=== PATIENT | female | born 1995 | race Caucasian/White ===

== ENCOUNTER 2017-08-14 05:35 | Inpatient (IN) | payer OTHER ==
[2017-08-14] VITALS (8 sets, daily range): BP systolic 127–147; BP diastolic 65–79; PULSE 66–99; RESP 16–22; TEMP 97.6–98.6; O2SAT 96–100
[~2017-08-14] VITALS: Ht 180.3 cm; Wt 118.0 kg
[2017-08-14 05:55] LABS: AUTOMATED NEUTROPHIL # 7.6 TH/MM3 (1.8-7.7); BASOPHIL % 0.2 % (0.0-2.0); EOSINOPHIL % 0.2 % (0.0-4.0); HEMATOCRIT 38.5 % (35.0-46.0); LYMPH % 25.2 % (9.0-44.0); LYMPHOCYTE # 2.8 TH/MM3 (1.0-4.8); MEAN CELL VOLUME 82.7 FL (80.0-100.0); MEAN CORPUSCULAR HEMOGLOBIN 27.9 PG (27.0-34.0); MEAN CORPUSCULAR HGB CONC 33.7 % (32.0-36.0); MEAN PLATELET VOLUME 7.8 FL (7.0-11.0); MONO % 6.2 % (0.0-8.0); MONOCYTE # 0.7 TH/MM3 (0-0.9); NEUT % 68.2 % (16.0-70.0); PLATELET COUNT 293 TH/MM3 (150-450); RED BLOOD COUNT 4.66 MIL/MM3 (4.00-5.30); RED CELL DISTRIBUTION WIDTH 14.3 % (11.6-17.2); WHITE BLOOD COUNT 11.1 TH/MM3 (4.0-11.0)
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
[2017-08-14] MEDS ORDERED: IOHEXOL 350 MG/ML 10 ML VIAL (for RAD DIAG) IVCONTRAST ONE (06:06)
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
[2017-08-14] MEDS ORDERED: SODIUM CHLOR 0.9% 1000 ML INJ 1,000 ML IV SCH (06:12)
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
[2017-08-14] MEDS ORDERED: SODIUM CHLORIDE 0.9% FLUSH 10 ML FLUSH IV FLUSH PRN (06:15)
[2017-08-14] MEDS ORDERED: ONDANSETRON HCL 4 MG/2 ML VIAL IV PUSH PRN (06:15)
[2017-08-14] MEDS ORDERED: Post-op Orders (for Pharmacy) XX ONE (06:15)
[2017-08-14] MEDS ORDERED: MORPHINE SULFATE 4 MG/ML INJ IV PUSH ONE (06:15)
[2017-08-14] MEDS ORDERED: oxyCODONE/ACETAMINOPHEN 5 MG/325 MG TAB PO PRN (06:15)
[2017-08-14] MEDS ORDERED: NALOXONE HCL 0.4 MG/ML AMP IV PUSH PRN (06:15)
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
[2017-08-14] MEDS ORDERED: LACTULOSE SYRUP 20 GM/30 ML CUP PO PRN (07:15)
[2017-08-14] MEDS: METHOCARBAMOL 500 MG TAB PO SCH ×3 (07:51→22:26)
[2017-08-14] MEDS: POLYETHYLENE GLYCOL 17 GM PKG PO SCH (09:00)
[2017-08-14] MEDS ORDERED: LIDOCAINE HCL 5% PATCH T-DERMAL SCH (09:00)
[2017-08-14] MEDS: SODIUM CHLORIDE 0.9% FLUSH 10 ML FLUSH IV FLUSH SCH ×2 (09:00→21:00)
[2017-08-14] MEDS: MORPHINE SULFATE 2 MG/ML SYRINGE IV PUSH PRN ×3 (09:32→16:28)
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
[2017-08-14] MEDS: FAMOTIDINE 20 MG TAB PO SCH ×2 (12:58→19:39)
[2017-08-14] MEDS: LIDOCAINE HCL 5% PATCH T-DERMAL SCH (12:58)
[2017-08-14] MEDS: DOCUSATE SODIUM 50 MG/SENNA 8.6 MG TAB PO SCH ×2 (12:58→19:39)
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
[2017-08-14] MEDS: oxyCODONE/ACETAMINOPHEN 10 MG/325 MG TAB PO PRN (19:39)
[2017-08-14] MEDS ORDERED: REMOVE OLD LIDOCAINE PATCH T-DERMAL SCH (21:00)
[2017-08-15 00:05] VITALS: BP 105/55; PULSE 86; RESP 18; TEMP 98.4; O2SAT 97
[2017-08-15] MEDS: KETOROLAC TROMETHAMINE 60 MG/2 ML (IM) VIAL IM SCH ×3 (01:11→14:52)
[2017-08-15] MEDS: oxyCODONE/ACETAMINOPHEN 10 MG/325 MG TAB PO PRN ×3 (06:11→19:17)
[2017-08-15] MEDS: METHOCARBAMOL 500 MG TAB PO SCH ×2 (06:11→14:50)
[2017-08-15 06:38] LABS: AUTOMATED NEUTROPHIL # 3.4 TH/MM3 (1.8-7.7); EOSINOPHIL % 0.5 % (0.0-4.0); HEMATOCRIT 35.7 % (35.0-46.0); LYMPH % 31.6 % (9.0-44.0); LYMPHOCYTE # 1.8 TH/MM3 (1.0-4.8); MEAN CELL VOLUME 83.1 FL (80.0-100.0); MEAN CORPUSCULAR HEMOGLOBIN 27.9 PG (27.0-34.0); MEAN CORPUSCULAR HGB CONC 33.6 % (32.0-36.0); MEAN PLATELET VOLUME 8.1 FL (7.0-11.0); MONO % 8.8 % (0.0-8.0); MONOCYTE # 0.5 TH/MM3 (0-0.9); NEUT % 59.1 % (16.0-70.0); PLATELET COUNT 243 TH/MM3 (150-450); RED BLOOD COUNT 4.29 MIL/MM3 (4.00-5.30); RED CELL DISTRIBUTION WIDTH 14.1 % (11.6-17.2); WHITE BLOOD COUNT 5.8 TH/MM3 (4.0-11.0)
[2017-08-15 07:00] LABS: BICARBONATE 27.5 MEQ/L (21.0-32.0); CALCIUM 8.7 MG/DL (8.5-10.1); CREATININE 0.91 MG/DL (0.50-1.00)
[2017-08-15 08:00] VITALS: BP 129/63; PULSE 81; RESP 16; TEMP 97.9; O2SAT 92
[2017-08-15] MEDS: DOCUSATE SODIUM 50 MG/SENNA 8.6 MG TAB PO SCH (08:38)
[2017-08-15] MEDS: LIDOCAINE HCL 5% PATCH T-DERMAL SCH (08:38)
[2017-08-15] MEDS: SODIUM CHLORIDE 0.9% FLUSH 10 ML FLUSH IV FLUSH SCH (08:39)
[2017-08-15] MEDS: FAMOTIDINE 20 MG TAB PO SCH (08:39)
[2017-08-15] MEDS: POLYETHYLENE GLYCOL 17 GM PKG PO SCH (08:39)
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
[2017-08-15 12:00] VITALS: BP 121/58; PULSE 78; RESP 16; TEMP 97; O2SAT 98
[2017-08-15] MEDS ORDERED: ENOXAPARIN SODIUM 40 MG/0.4 ML SYRINGE SQ SCH (12:00)
[2017-08-15] MEDS ORDERED: PERI PO (12:29)
[2017-08-15] MEDS ORDERED: METH500T3 PO (12:29)
[2017-08-15] MEDS ORDERED: OXYC1TAB63 PO (12:29)
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
[2017-08-15] MEDS ORDERED: WALKER WHEELS/F1 MIS (14:45)
== END 2017-08-15 19:39 | disposition home or self-care (01) | DRG 552 ==
LOC: NEPI 05:35 → NEDA 06:16 → EDBD 06:16 → N06B 06:36 → NEDA 06:36 → N06B 08:18
PROVIDERS: ADMIT Surgery; ATTEND Surgery
DX: S32.010A Wedge compression fracture of first lumbar vertebra, initial encounter for closed fracture (principal); V49.88XA Car occupant (driver) (passenger) injured in other specified transport accidents, initial encounter
CPT/HCPCS: 70450; 70486; 71045; 71260; 72125; 72132; 72146; 72148; 72170; 74177; 80048; 80307; 85025; 85610; 85730; 86850; 86900; 86901; 94150; 99291; A0431-QM-SH; A0436-QM-SH; G0390; J1650; J1885; J2270; J7030; L0200; L0484; Q9967